=== PATIENT | female | born 1980 | race Caucasian/White ===

== ENCOUNTER 2016-07-02 11:01 | Inpatient (IN) | payer OTHER ==
[2016-07-02] MEDS ORDERED: SODIUM CHLORIDE 0.9% 1,000 ML IV STA (11:36)
[2016-07-02] MEDS ORDERED: IV VANCOMYCIN PER PHARMACY 1 EACH MISC MISCELLANE PRN (11:37)
[2016-07-02] MEDS ORDERED: VANCOMYCIN 1,500 MG in SODIUM CHLORIDE 0.9% 250 ML IVPB STA (11:37)
--- NOTE | 2016-07-02 11:40 | ED ---
General Adult HPI - General Chief complaint: Skin/Abscess/Foreign Body Stated complaint: poss cellulitis left arm Time Seen by Provider: 07/02/16 11:14 Source: patient, RN notes reviewed Mode of arrival: EMS Limitations: no limitations - History of Present Illness Initial comments: Patient 36-year-old female who resents from [facility] for IV drug use, with a chief complaint of abscess located to the left arm. Patient was seen at [facility] 2 days ago and had an abscess drained. States she was started on both Bactrim and Keflex. She states that the symptoms have increased and gotten worse. She states is more swelling and pain. Patient denies any other complaints or symptoms. Patient denies any recent fever, chills, shortness of breath, chest pain, back pain, abdominal pain , nausea or vomiting, numbness or tingling, dysuria or hematuria, constipation or diarrhea, headaches or visual changes, or any other complaints. - Related Data Allergies Allergy/AdvReac Type Severity Reaction Status Date / Time No Known Allergies Allergy Verified 07/02/16 11:22 Review of Systems ROS Statement: Those systems with pertinent positive or pertinent negative responses have been documented in the HPI. ROS Other: All systems not noted in ROS Statement are negative. Past Medical History Past Medical History: No Reported History History of Any Multi-Drug Resistant Organisms: None Reported Additional Past Surgical History / Comment(s): left knee, tubal ligation Past Psychological History: Anxiety Smoking Status: Current every day smoker Past Alcohol Use History: None Reported Past Drug Use History: None Reported General Exam - General Exam Comments Initial Comments: General: The patient is awake and alert, in no distress, and does not appear acutely ill. Eye: Pupils are equal, round and reactive to light, extra-ocular movements are intact. No nystagmus. There is normal conjunctiva bilaterally. No signs of icterus. Ears, nose, mouth and throat: There are moist mucous membranes and no oral lesions. Neck: The neck is supple, there is no tenderness or JVD. Cardiovascular: There is a regular rate and rhythm. No murmur, rub or gallop is appreciated. Respiratory: Lungs are clear to auscultation, respirations are non-labored, breath sounds are equal. No wheezes, stridor, rales, or rhonchi. Musculoskeletal: Normal ROM, no tenderness. Strength 5/5. Sensation intact. Pulses equal bilaterally 2+. Neurological: A&O x 3. CN II-XII intact, There are no obvious motor or sensory deficits. Coordination appears grossly intact. Speech is normal. Skin: Redness and swelling to the left AC joint with lymphangitic streaking half-way up left upper arm. Psychiatric: Cooperative, appropriate mood & affect, normal judgment. Limitations: no limitations Course Vital Signs 07/02/16 11:16 Temperature 98.9 F Pulse Rate 88 Respiratory 16 Rate Blood Pressure 104/56 O2 Sat by Pulse 97 Oximetry Medical Decision Making - Medical Decision Making Patient will be admitted to the hospital started on vancomycin for left arm abscess with cellulitis. Patient outpatient treatment failure of Bactrim and Keflex. Patient aware the plan states understanding and is in agreement. Discussed with attending physician Dr. Esparza who did discuss case with admitting physician Dr. Bay who recommends consult from [facility]. - Lab Data Result diagrams: 07/02/16 12:10 Lab Results 07/02/16 Range/Units 12:10 WBC 9.0 (3.8-10.6) k/uL RBC 4.27 (3.80-5.40) m/uL Hgb 13.5 (11.4-16.0) gm/dL Hct 41.6 (34.0-46.0) % MCV 97.3 (80.0-100.0) fL MCH 31.7 (25.0-35.0) pg MCHC 32.6 (31.0-37.0) g/dL RDW 15.8 H (11.5-15.5) % Plt Count 237 (150-450) k/uL Neutrophils % 75 % Lymphocytes % 13 % Monocytes % 6 % Eosinophils % 4 % Basophils % 0 % Neutrophils # 6.8 (1.3-7.7) k/uL Lymphocytes # 1.2 (1.0-4.8) k/uL Monocytes # 0.6 (0-1.0) k/uL Eosinophils # 0.3 (0-0.7) k/uL Basophils # 0.0 (0-0.2) k/uL Disposition Clinical Impression: Abscess of left arm, Cellulitis Disposition: ADMITTED IP TO THIS HOSP Condition: Good Time of Disposition: 12:31
[2016-07-02 12:20] LABS: Basophils % (A) 0 %; CH 31.6; CHCM 32.7; Eosinophils # (A) 0.3 k/uL (0-0.7); Eosinophils % (A) 4 %; HCT 41.6 % (34.0-46.0); HDW 2.11; HGB 13.5 gm/dL (11.4-16.0); Luc # (Auto) 0.18; Luc % (Auto) 2; Lymphocytes # (A) 1.2 k/uL (1.0-4.8); Lymphocytes % (A) 13 %; MCH 31.7 pg (25.0-35.0); MCHC 32.6 g/dL (31.0-37.0); MCV 97.3 fL (80.0-100.0); Mean Platelet Volume 8.1; Monocytes # (A) 0.6 k/uL (0-1.0); Monocytes % (A) 6 %; Neutrophils # (A) 6.8 k/uL (1.3-7.7); Neutrophils % (A) 75 %; RBC 4.27 m/uL (3.80-5.40); RDW 15.8 % (11.5-15.5); WBC (Perox) 9.11
[2016-07-02] MEDS ORDERED: NALOXONE 0.4 MG/ML 1 ML VIAL IV PRN (12:32)
[2016-07-02] MEDS ORDERED: SODIUM CHLORIDE 0.9% 1,000 ML IV ONE (12:32)
[2016-07-02] MEDS ORDERED: ACETAMINOPHEN TAB 325 MG TAB PO PRN (12:32)
[2016-07-02 12:35] LABS: ALT 41 U/L (9-52); AST 33 U/L (14-36); Alkaline Phosphatase 91 U/L (38-126); Anion Gap 11 mmol/L; Blood Urea Nitrogen 13 mg/dL (7-17); Calcium 9.5 mg/dL (8.4-10.2); Carbon Dioxide 21 mmol/L (22-30); Chloride 107 mmol/L (98-107); Glucose 73 mg/dL (74-99); Non-African American GFR(MDRD) 56 (>60 ml/min/1.73 sqM); Potassium 5.3 mmol/L (3.5-5.1); Sodium 139 mmol/L (137-145); Total Bilirubin 1.1 mg/dL (0.2-1.3); Total Protein 6.7 g/dL (6.3-8.2)
[2016-07-02] MEDS: HYDROcodone/APAP 5-325MG 1 EACH TAB PO PRN ×2 (13:59→19:42)
[2016-07-02] MEDS: NICOTINE 14MG/24HR PATCH TRANSDERM SCH (14:59)
--- NOTE | 2016-07-02 15:09 | P.GSCN ---
History of Present Illness Consult date: 07/02/16 Reason for Consult: Surgical eval abscess left antecubital History of present illness: 36-year-old female who presented on the day of admission to the emergency room to be evaluated for a chief complaint of increased redness increased pain increased swelling involving the left upper arm extending into left antecubital area patient states that she has been in [place] for IV drug use heroin for the last 10 days. While at [place] developed pain in the left antecubital area with an abscess presented to [facility] on Tuesday to be evaluated Patient states that she was seen at [facility] on Tuesday this week for the above-mentioned symptoms. She stated at that time they did drain an abscess from the left antecubital area. Patient stated that she use that area to inject IV heroin. Approximately 14 days ago Patient stated that she was started on antibiotic Bactrim and Keflex. Patient stated that she return back to [place] the symptoms became more symptomatic the redness extended around the arm and down to the antecubital space with more tenderness and increased pain. Patient stated there been no fever chills no shortness of breath no other symptoms. The left upper arm significant redness with tenderness noted the left antecubital space small area firm patient states that if the abscess area that they drained on Tuesday Review of Systems Essentially unremarkable except as mentioned in the present illness Past Medical History Past Medical History: No Reported History Additional Past Medical History / Comment(s): Abscess L arm History of Any Multi-Drug Resistant Organisms: None Reported Additional Past Surgical History / Comment(s): left knee reconstruction, tubal ligation Past Anesthesia/Blood Transfusion Reactions: No Reported Reaction Past Psychological History: Anxiety Additional Psychological History / Comment(s): Pt currently at [place] for IVDA rehab. Pt normally lives with her parents. She is independent. She last used heroin 10 days ago. Smoking Status: Current every day smoker Past Alcohol Use History: None Reported Past Drug Use History: Heroin Additional Drug Use History / Comment(s): Pt abused IV heroin. Last used 10 days ago. - Past Family History Father Family Medical History: No Reported History Additional Family Medical History / Comment(s): Father never goes to the doctor. Mother Family Medical History: No Reported History Additional Family Medical History / Comment(s): Mother is healthy. Medications and Allergies Home Medications Medication Instructions Recorded Confirmed Type Acetaminophen [Tylenol Arthritis] 650 mg PO Q4H PRN 07/02/16 07/02/16 History Calcium/Magnesium 100mg/500mg 1 tab PO TID PRN 07/02/16 07/02/16 History Cephalexin [Keflex] 500 mg PO QID 07/02/16 07/02/16 History Chlorpheniramine Maleate 4 mg PO Q4H PRN 07/02/16 07/02/16 History [Chlor-Trimeton] Ibuprofen [Motrin] 600 mg PO QID PRN 07/02/16 07/02/16 History Mirtazapine [Remeron] 15 mg PO HS 07/02/16 07/02/16 History Multivitamins, Thera [Multivitamin] 1 tab PO DAILY 07/02/16 07/02/16 History Ondansetron HCl [Zofran] 8 mg PO Q6H PRN 07/02/16 07/02/16 History Ondansetron [Zofran] 4 mg IM Q6H PRN 07/02/16 07/02/16 History Sulfamethox-Tmp 800-160Mg [Bactrim 1 tab PO BID@0600,1800 07/02/16 07/02/16 History DS 800-160 mg] busPIRone HCl [Buspar] 10 mg PO TID PRN 07/02/16 07/02/16 History cloNIDine HCL [Catapres] 0.1 mg PO Q4H PRN 07/02/16 07/02/16 History Allergies Allergy/AdvReac Type Severity Reaction Status Date / Time No Known Allergies Allergy Verified 07/02/16 12:31 Surgical - Exam Vital Signs Temp Pulse Resp BP Pulse Ox 98.9 F 88 16 104/56 97 07/02/16 11:16 07/02/16 11:16 07/02/16 11:16 07/02/16 11:16 07/02/16 11:16 GENERAL APPEARANCE: 36-year-old female patient is alert, oriented, 3 in no acute distress. VITAL SIGNS: Afebrile reviewed HEENT: Head is normocephalic and atraumatic. Pupils are equal and reactive. The nares are patent. Oropharynx is clear without lesions. NECK: Supple without lymphadenopathy. Traches midline. HEART: S1, S2. Regular rate and rhythm. No murmur noted denying heart palpitation denying chest pain LUNGS: No crackles or wheezes are heard. Adequate air movement on room air ABDOMEN: Soft, nontender, nondistended with good bowel sounds. No peritoneal signs. No palpable organomegaly or masses. Denies any nausea vomiting denies any frequent stooling EXTREMITIES: Bilateral lower extremities no evidence of edema. Radial pedal pulses are 2/4 bilaterally. The left upper arm extending into the before meals joint significant redness significant tenderness with swelling noted with lymphangitic streaking usp up the left arm. Palpable firm area where the abscess was drained noted patient states it has decreased in size. Patient continues to report having pain in the left upper arm with tenderness the left arm elevated on 2 pillows. Bilateral extremities warm to touch. NEUROLOGICAL: No focal deficits. Strength and sensation are grossly intact. Results - Labs 07/02/16 12:10 07/02/16 12:10 Assessment and Plan Plan: Impression Present on admission left arm abscess with cellulitis Status post incision and drainage of the left arm abscess done on Tuesday this week History of IV drug use heroin use last 14 days ago Failed outpatient treatment on Bactrim and Keflex for cellulitis left arm abscess Chronic nicotine dependency 1 pack a day Prior history of opiate prescription drug abuse Plan Dr. Lombardi will evaluate the left arm and further recommendations pending Keep left arm elevated Continue IV vancomycin as ordered Nicotine patch as ordered patient's been advised to stop smoking cigarettes Further surgical recommendations pending Continue IV fluid at 100 and hour Pain control Thank you for allowing us to participate in the surgical management of your patient further surgical recommendations pending The above dictated assessment and findings were discussed with dr lombardi Impression and the plan of care have been dictated as directed. Audra Maravilla nurse practitioner acting as a scribe for dr lombardi
[2016-07-02] MEDS: HYDROmorphone 1 MG/ML 1 ML SYRINGE IV PRN ×2 (16:21→21:49)
[2016-07-03] MEDS: HYDROcodone/APAP 5-325MG 1 EACH TAB PO PRN ×3 (01:03→18:15)
[2016-07-03] MEDS: HYDROmorphone 1 MG/ML 1 ML SYRINGE IV PRN ×5 (07:50→20:32)
--- NOTE | 2016-07-03 07:52 | US ---
EXAMINATION TYPE: US extremity nonvasc mass LT DATE OF EXAM: 07/02/2016 9:46 PM COMPARISON: No previous CLINICAL HISTORY: rule out abscess near AC fossa and upper arm . Left arm cellulitis, left arm absces s drained 2 days ago Findings: Scanned left arm AC fossa previous drainage site: 3.5 x 1.6 x 3.1cm and 1.9 x 1.0 x 2.2cm i rregular complex areas with some vascularity, both areas together span 5.5cm at previous drainage sit e IMPRESSION: Small residual abscess measuring 1.9 x 1.0 x 2.2 cm with surrounding areas of inflammato ry change and phlegmon.
[2016-07-03] MEDS: ONDANSETRON 4 MG/2 ML VIAL IVP PRN (07:58)
[2016-07-03] MEDS: NICOTINE 14MG/24HR PATCH TRANSDERM SCH (07:58)
[2016-07-03 08:14] LABS: ALT 34 U/L (9-52); AST 22 U/L (14-36); Alkaline Phosphatase 81 U/L (38-126); Anion Gap 8 mmol/L; Blood Urea Nitrogen 12 mg/dL (7-17); Calcium 8.5 mg/dL (8.4-10.2); Carbon Dioxide 25 mmol/L (22-30); Chloride 107 mmol/L (98-107); Glucose 81 mg/dL (74-99); Non-African American GFR(MDRD) 59 (>60 ml/min/1.73 sqM); Potassium 4.5 mmol/L (3.5-5.1); Sodium 140 mmol/L (137-145); Total Bilirubin 0.8 mg/dL (0.2-1.3); Total Protein 5.7 g/dL (6.3-8.2)
[2016-07-03 08:16] LABS: Basophils % (A) 1 %; CH 31.5; Eosinophils # (A) 0.2 k/uL (0-0.7); Eosinophils % (A) 4 %; HCT 37.7 % (34.0-46.0); HDW 2.06; HGB 11.8 gm/dL (11.4-16.0); Luc # (Auto) 0.15; Luc % (Auto) 3; Lymphocytes # (A) 0.7 k/uL (1.0-4.8); Lymphocytes % (A) 16 %; MCH 31.1 pg (25.0-35.0); MCHC 31.4 g/dL (31.0-37.0); MCV 98.9 fL (80.0-100.0); Macrocytosis Slight; Mean Platelet Volume 7.2; Monocytes # (A) 0.3 k/uL (0-1.0); Monocytes % (A) 8 %; Neutrophils % (A) 69 %; RBC 3.81 m/uL (3.80-5.40); RDW 15.9 % (11.5-15.5); WBC 4.4 k/uL (3.8-10.6); WBC (Perox) 4.35
[2016-07-03] MEDS ORDERED: VANCOMYCIN 1,500 MG in SODIUM CHLORIDE 0.9% 250 ML IVPB SCH (09:00)
[2016-07-03] MEDS: LORazepam 2 MG/ML SYRINGE IV PRN ×2 (09:46→20:36)
[2016-07-03] MEDS ORDERED: LIDOCAINE 2% INJ 20 MG/ML (20 ML MDV) SQ STA (12:25)
--- NOTE | 2016-07-03 13:59 | P.PCN ---
Date of Procedure: 07/03/16 Preoperative Diagnosis: abscess at injection site Postoperative Diagnosis: abscess and hematoma and previous injection site Procedure(s) Performed: Incision and drainage of abscess Anesthesia: local Surgeon: Jaya Hanks Pathology: other Indications for Procedure: Ultrasound proven residual abscess in the left antecubital fossa Operative Findings: Lysed hematoma with pus Description of Procedure: After obtaining informed consent the left antecubital, fossa was prepped and draped in usual sterile surgical fashion after which was infiltrated 1% lidocaine and incision was made at the site of the previous incision. Approximately 7-8 mL of pus and lysed hematoma was expressed. The cavity was then packed with a dressing. Patient ordered procedure well there were no complications.
--- NOTE | 2016-07-03 14:01 | P.PN ---
Progress Note - Text 36-year-old Nkechi presented with an injection site abscesses secondary to her drug use. It had previously been incised and drained. Ultrasound revealed that there was remanent fluid within the previous abscess cavity for which she underwent an incision and drainage at the bedside. Patient tolerated procedure well there were no complications. The effluent was sent for cultures. The surgical standpoint she could potentially be discharged tomorrow with daily dressing changes and packing of the wound. She may follow-up with me in clinic in a week time.
[2016-07-03] MEDS ORDERED: LIDOCAINE-PRILOCAINE 2.5-2.5% CREAM 5 GM TUBE TOPICAL STA (15:38)
[2016-07-03] MEDS ORDERED: busPIRone HCl 10 MG TAB PO PRN (16:57)
[2016-07-03] MEDS ORDERED: cloNIDine HCL 0.1 MG TAB PO PRN (16:57)
[2016-07-03] MEDS: MIRTAZAPINE 15 MG TAB PO SCH (20:31)
--- NOTE | 2016-07-03 20:49 | HP ---
CHIEF COMPLAINT: Left arm abscess. HISTORY OF PRESENT ILLNESS: Ms. Bazzi is a 36-year-old female who is currently sent from [facility] for the chief complaint of abscesses in her left forearm. The patient has history of IV drug abuse. She has been using IV heroin and later on went to [facility] facility. The patient was seen at [facility] 2 days back and had an abscess drained and was started on Bactrim and Keflex and sent home, but patient's swelling and pain had worsened and so she came in for further evaluation. Patient denies having any fevers, chills or rigors. No complaints of difficulty in breathing. No abdominal pain, nausea, vomiting or diarrhea. The patient denies having any dysuria or hematuria. At the time of admission, the patient was found to have abscess and had incision and drainage of the abscess of the cubital fossa by Dr. Hanks and she has been started on vancomycin. The patient is sitting up in the bed, appears to be no acute distress. She does not have any complaints. REVIEW OF SYSTEMS: All 13 review of systems are done and negative except for the ones mentioned in the HPI. Past medical history is significant for intravenous drug abuse. ALLERGIES: No known drug allergies. Patient's home medications: 1. Remeron 50 mg p.o. q.h.s. 2. Chlorpheniramine 4 mg q.4 hours p.r.n. for itching. 3. Tylenol 650 mg p.o. q.4. hours for pain. 4. Motrin 600 mg p.o. 4 times a day p.r.n. for pain. 5. Zofran 4 mg p.o. p.r.n. for nausea and vomiting. 6. BuSpar 10 mg p.o. 3 times a day. 7. Clonidine 0.1 mg p.o. q.4 hours for anxiety. 8. Bactrim and 9. Keflex and 10. Multivitamins. PAST SURGICAL HISTORY: Left knee reconstruction, tubal ligation. PAST PSYCHIATRIC HISTORY: Positive for anxiety. SOCIAL HISTORY: The patient is a current every day smoker and has history of intravenous drug abuse and did IV heroin 10 days back. FAMILY HISTORY: Negative for hypertension or diabetes. On examination, patient's vital signs: Temperature 97.9, heart rate 89, respiratory rate 16, blood pressure 88/47. GENERAL: Appears to be no acute distress. HEAD: Atraumatic, normocephalic. EYES: Pupils round and reactive to light. NECK: No thyromegaly. No JVD. CVS: S1, S2 heard. RESPIRATORY: Bilateral breath sounds are positive. No wheeze or crackles. ABDOMEN: Soft, nontender. No organomegaly. Bowel sounds are positive. EXTREMITIES: No cyanosis. There is no clubbing. HEALTH SAFETY MANAGER: Alert, awake, oriented x3. LEFT ARM: It is covered with a glaser bandage and I did not take it out and the patient states she just had the dressing changed. PATIENT'S LABS: White count of 4.4, hemoglobin is 11.8, platelets of 228. Sodium 140, potassium 4.5, chloride 107, bicarb 25, BUN 12, creatinine 1.05. ASSESSMENT AND PLAN: 1. Left arm abscess with surrounding cellulitis. 2. History of intravenous drug abuse. 3. History of nicotine dependence. 4. Anxiety/depression unspecified. PLAN: The plan is to continue the patient on vancomycin for now, as she failed outpatient treatments with Bactrim and Keflex and the patient's wound cultures are currently pending. Will continue the rest of her medication regimen and further recommendations depending on the progress of the patient.
[2016-07-04] MEDS: VANCOMYCIN 1,500 MG in SODIUM CHLORIDE 0.9% 250 ML IVPB SCH ×2 (00:17→15:31)
[2016-07-04] MEDS: HYDROcodone/APAP 5-325MG 1 EACH TAB PO PRN ×4 (00:17→20:54)
[2016-07-04 07:33] LABS: Basophils % (A) 1 %; CH 31.7; CHCM 31.8; Eosinophils # (A) 0.2 k/uL (0-0.7); Eosinophils % (A) 6 %; HCT 38.1 % (34.0-46.0); HDW 2.18; HGB 11.7 gm/dL (11.4-16.0); Luc % (Auto) 3; Lymphocytes # (A) 0.9 k/uL (1.0-4.8); Lymphocytes % (A) 27 %; MCH 30.8 pg (25.0-35.0); MCHC 30.7 g/dL (31.0-37.0); MCV 100.5 fL (80.0-100.0); Macrocytosis Slight; Mean Platelet Volume 8.2; Monocytes # (A) 0.3 k/uL (0-1.0); Monocytes % (A) 10 %; Neutrophils # (A) 1.8 k/uL (1.3-7.7); Neutrophils % (A) 54 %; RBC 3.79 m/uL (3.80-5.40); RDW 15.9 % (11.5-15.5); WBC 3.3 k/uL (3.8-10.6); WBC (Perox) 3.42
[2016-07-04] MEDS: NICOTINE 14MG/24HR PATCH TRANSDERM SCH (10:25)
[2016-07-04] MEDS: LORazepam 2 MG/ML SYRINGE IV PRN ×3 (10:46→23:42)
--- NOTE | 2016-07-04 11:23 | P.PN ---
Subjective Principal diagnosis: Left arm cellulitis with abscess Overall the patient is doing well. Pain has improved and the redness has decreased Objective - Vital Signs Vital signs: Vital Signs Temp 98.1 F 07/04/16 07:00 Pulse 86 07/04/16 07:00 Resp 16 07/04/16 08:00 BP 95/68 07/04/16 07:00 Pulse Ox 97 07/04/16 07:00 Intake & Output 07/03/16 07/04/16 07/04/16 18:59 06:59 18:59 Intake Total 800 Balance 800 Intake: IV 800 Sodium Chloride 0.9% 1, 800 000 ml @ 100 mls/hr IV . Q10H ONE Rx#:[id number] Other: Voiding Method Toilet Toilet Toilet # Voids 2 1 - Exam Left arm was exaimned. There is definitely decreased amount of cellulitis. The incision was packed with a small amount of dressing. There is no fluctuation or redness or drainage at this time. Pain is improved. Overall the arm still remains swollen but the numbness and tingling has resolved. - Labs CBC & Chem 7: 07/04/16 06:56 07/03/16 07:10 Labs: Abnormal Lab Results - Last 24 Hours (Table) 07/04/16 Range/Units 06:56 WBC 3.3 L (3.8-10.6) k/uL RBC 3.79 L (3.80-5.40) m/uL MCV 100.5 H (80.0-100.0) fL MCHC 30.7 L (31.0-37.0) g/dL RDW 15.9 H (11.5-15.5) % Lymphocytes # 0.9 L (1.0-4.8) k/uL Microbiology - Last 24 Hours (Table) 07/03/16 13:40 Gram Stain - Preliminary Elbow - Left Wound Culture - Preliminary 07/03/16 13:40 Anaerobic Culture - Preliminary Elbow - Left Assessment and Plan (1) Abscess of left arm Status: Acute (2) Cellulitis Status: Acute Plan: Improving cellulitis and no residual abscess. Continue local wound care as recommended. Okay to discharge from surgical standpoint.
[2016-07-04] MEDS: HYDROmorphone 1 MG/ML 1 ML SYRINGE IV PRN ×3 (12:23→21:50)
[2016-07-04] MEDS: ONDANSETRON 4 MG/2 ML VIAL IVP PRN (12:33)
[2016-07-04] MEDS ORDERED: cloNIDine HCL 0.1 MG TAB PO PRN (14:44)
[2016-07-04] MEDS: MIRTAZAPINE 15 MG TAB PO SCH (21:36)
[2016-07-05] MEDS: HYDROmorphone 1 MG/ML 1 ML SYRINGE IV PRN ×6 (01:47→22:11)
[2016-07-05] MEDS ORDERED: VANCOMYCIN TROUGH DUE 1 EACH MISC MISCELLANE ONE (07:00)
[2016-07-05] MEDS: VANCOMYCIN 1,500 MG in SODIUM CHLORIDE 0.9% 250 ML IVPB SCH (07:57)
[2016-07-05] MEDS: LORazepam 2 MG/ML SYRINGE IV PRN ×3 (07:57→19:28)
[2016-07-05] MEDS: NICOTINE 14MG/24HR PATCH TRANSDERM SCH (08:00)
[2016-07-05] MEDS: HYDROcodone/APAP 5-325MG 1 EACH TAB PO PRN ×3 (13:46→21:46)
--- NOTE | 2016-07-05 14:16 | PN ---
INTERVAL HISTORY: Ms. Bazzi is a 36-year-old female with past medical history of intravenous drug abuse, admitted to the hospital for left antecubital fossa abscess. She had I&D of the abscess and currently on antibiotics. Her cultures are pending. Today the patient is sitting up in her bed to be in no acute distress. REVIEW OF SYSTEMS: CONSTITUTIONAL: Denies having any fevers, chills or rigors. RESPIRATORY: No cough. ( ). CARDIAC: No chest pain or palpitations. GI: No abdominal pain, nausea, vomiting, or diarrhea. Patient's medications have been reviewed. On examination, patient's vital signs temperature 98.2, heart rate 84, respiratory rate 16, blood pressure 106/52, saturating at 98% on room air. HEAD: Atraumatic, nontraumatic. EYES: Pupils, round, and reactive to light. NECK: No JVD. No thyromegaly. CARDIOVASCULAR: S1, S2 heard. LUNGS: Bilateral breath sounds are positive. No wheeze or crackles. ABDOMEN: Soft, nontender. Bowel sounds are positive. EXTREMITIES: No edema. No cyanosis, no clubbing. Peripheral pulses are felt. Examination of the left antecubital fossa it is covered in crepe bandage, and examination of the bandage did not show any signs of active bleeding. Patient's labs: White count of 3.3, hemoglobin is 11.7, platelets of 259. Patient's cultures, wound cultures are currently pending. ASSESSMENT AND PLAN: 1. Left antecubital fossa abscess, status incision and drainage. 2. History of intravenous drug abuse. 3. History of nicotine dependence. 4. Anxiety/depression unspecified. PLAN: The plan is to continue the patient on vancomycin until we have the wound cultures and continue with the rest of her medication regimen. Further recommendations to follow depending on the progress of the patient.
[2016-07-05] MEDS: MIRTAZAPINE 15 MG TAB PO SCH (21:48)
[2016-07-06] MEDS: VANCOMYCIN 1,500 MG in SODIUM CHLORIDE 0.9% 250 ML IVPB SCH ×2 (00:42→15:45)
[2016-07-06] MEDS: HYDROmorphone 1 MG/ML 1 ML SYRINGE IV PRN ×2 (00:55→05:51)
[2016-07-06] MEDS: HYDROcodone/APAP 5-325MG 1 EACH TAB PO PRN ×5 (01:47→20:10)
[2016-07-06] MEDS: NICOTINE 14MG/24HR PATCH TRANSDERM SCH ×2 (07:17→23:33)
[2016-07-06] MEDS: LORazepam 2 MG/ML SYRINGE IV PRN ×3 (07:45→20:11)
--- NOTE | 2016-07-06 09:05 | PN ---
DATE OF SERVICE: 07/05/2016 Mrs. Bazzi is a 36-year-old female with a past medical history of IV drug abuse admitted to the hospital for a left antecubital fossa abscess. She is status post I&D and currently on antibiotics. Cultures are still pending. Today, the patient is sitting up in the bed, appears to be in no acute distress. She does not have any active complaints. REVIEW OF SYSTEMS: CONSTITUTIONAL: Denies having any fevers, chills or rigors. RESPIRATORY: No cough. No difficulty in breathing. CARDIAC: No chest pain, no palpitations. GI: No abdominal pain, nausea, vomiting, or diarrhea. The patient's medications have been reviewed. On examination, patient's vital signs temperature 97.5, heart rate 95, respiratory rate 16, blood pressure 98/54, saturating at 96% on room air. GENERAL EXAMINATION: Patient appears to be in no acute distress. HEAD: Atraumatic, normocephalic. EYES: Pupils round and reactive to light. NECK: No JVD. No thyromegaly. CARDIOVASCULAR: S1, S2 heard. LUNGS: Bilateral breath sounds are positive. No wheeze or crackles. ABDOMEN: Soft, nontender. Bowel sounds positive. EXTREMITIES: No edema. No cyanosis. Peripheral pulses are felt. Left antecubital fossa covered in ( ) bandage. No signs of active oozing. Patient's labs: White count of 3.3, hemoglobin is 11.7, platelets of 259. ASSESSMENT AND PLAN: 1. Left antecubital fossa abscess, status post incision and drainage. 2. History of IV drug abuse. 3. History of nicotine dependence. 4. Anxiety/depression, unspecified. PLAN: Plan is to continue the patient on vancomycin. Currently the wound cultures are pending. Will continue with the rest of her medication regimen and further recommendations to follow depending on the progress of the patient.
[2016-07-06 09:50] LABS: Anion Gap 9 mmol/L; Blood Urea Nitrogen 10 mg/dL (7-17); Calcium 8.6 mg/dL (8.4-10.2); Carbon Dioxide 25 mmol/L (22-30); Chloride 107 mmol/L (98-107); Glucose 73 mg/dL (74-99); Non-African American GFR(MDRD) >60 (>60 ml/min/1.73 sqM); Potassium 4.2 mmol/L (3.5-5.1); Sodium 141 mmol/L (137-145)
[2016-07-06] MEDS: KETOROLAC 30 MG/ML 1 ML VIAL IVP PRN ×2 (10:50→18:52)
[2016-07-06 13:13] LABS: Hepatitis B Surface Ag Index 0.07
[2016-07-06 13:19] LABS: Hepatitis B Core IgM Index 0.07
[2016-07-06 13:36] LABS: Hepatitis C Virus IgG Ab Reactive (Negative)
--- NOTE | 2016-07-06 17:31 | PN ---
This dictation is both progress note and discharge summary. A 36-year-old with history of IV drug use and abscess in the antecubital fossa, underwent incision and drainage. Awaiting culture and sensitivities. Patient is clinically doing well at this point of time, afebrile. Considering her IV drug use history, I am also obtaining hepatitis panel at this point of time. REVIEW OF SYSTEMS: CARDIOVASCULAR: No chest pain, no orthopnea, no PND, no palpitations. PULMONARY: Denied any shortness of breath. No cough or hemoptysis. GASTROINTESTINAL: No diarrhea, nausea or vomiting. No abdominal pain. Normoactive bowel sounds. NEUROLOGIC: No headaches, no weakness, no numbness. Medications were reviewed. PHYSICAL EXAMINATION: Temperature 97.9, pulse of 82, respiratory rate of 18, blood pressure 90/49, saturating at 97% on room air. GENERAL: The patient is alert and oriented x3, not in any acute distress. Well developed, well nourished. HEENT: Pupils are round and equally reacting to light. EOMI. No scleral icterus. No conjunctival pallor. Normocephalic, atraumatic. No pharyngeal erythema. No thyromegaly. CARDIOVASCULAR: S1 and S2 present. No murmurs, rubs, or gallops. PULMONARY: Chest is clear to auscultation, no wheezing or crackles. ABDOMEN: Soft, nontender, nondistended, normoactive bowel sounds. No palpable organomegaly. MUSCULOSKELETAL: Left antecubital fossa is postsurgically drained and has a dressing over it. EXTREMITIES: No cyanosis, clubbing, or pedal edema. NEUROLOGICAL: Gross neurological examination did not reveal any focal deficits. SKIN: No rashes. Medication changes include the following: Her clonidine was discontinued. I do not see a reason for that. Her blood pressure is already low. I started her on anti-inflammatory medications to avoid opiates as much as possible. LABORATORY DATA: Basic metabolic profile is essentially within normal limits. ASSESSMENT AND PLAN: 1. Abscess in antecubital fossa probably due to IV drug use and hepatitis panel was ordered, awaiting cultures. If we are able to get cultures today and I will be able to decide on antibiotics and discharge her today. Otherwise, the patient is going to stay here. 2. Rule out hepatitis. 3. Nicotine dependence. 4. Anxiety, depression. PLAN: As mentioned above.
[2016-07-06] MEDS: MIRTAZAPINE 15 MG TAB PO SCH (20:17)
[2016-07-07] MEDS: HYDROcodone/APAP 5-325MG 1 EACH TAB PO PRN ×3 (03:41→12:28)
[2016-07-07] MEDS: LORazepam 2 MG/ML SYRINGE IV PRN ×2 (03:41→08:53)
[2016-07-07] MEDS: KETOROLAC 30 MG/ML 1 ML VIAL IVP PRN (04:18)
[2016-07-07] MEDS: HYDROmorphone 1 MG/ML 1 ML SYRINGE IV PRN ×3 (05:24→12:05)
[2016-07-07] MEDS: NICOTINE 14MG/24HR PATCH TRANSDERM SCH (07:57)
[2016-07-07] MEDS: VANCOMYCIN 1,500 MG in SODIUM CHLORIDE 0.9% 250 ML IVPB SCH (07:58)
[2016-07-07 08:20] VITALS: BP 82/41; PULSE 70; RESP 18; TEMP 96.8
[2016-07-07 09:47] LABS: CH 31.3; CHCM 31.6; HDW 2.16; HGB 12.1 gm/dL (11.4-16.0); MCH 31.7 pg (25.0-35.0); MCHC 31.8 g/dL (31.0-37.0); MCV 99.6 fL (80.0-100.0); Macrocytosis Slight; RBC 3.82 m/uL (3.80-5.40); RDW 15.5 % (11.5-15.5)
[2016-07-07] MEDS ORDERED: FLUCONAZOLE 100 MG TAB PO ONE (10:00)
[2016-07-07 10:12] LABS: Anion Gap 10 mmol/L; Blood Urea Nitrogen 19 mg/dL (7-17); Calcium 8.7 mg/dL (8.4-10.2); Carbon Dioxide 23 mmol/L (22-30); Chloride 106 mmol/L (98-107); Glucose 95 mg/dL (74-99); Non-African American GFR(MDRD) >60 (>60 ml/min/1.73 sqM); Potassium 4.4 mmol/L (3.5-5.1); Sodium 139 mmol/L (137-145)
[2016-07-07] MEDS: ONDANSETRON 4 MG/2 ML VIAL IVP PRN (12:12)
--- NOTE | 2016-07-08 07:35 | DS ---
DATE OF ADMISSION: 07/02/2016 DATE OF DISCHARGE: 07/07/2016 The patient is a 36-year-old IV drug user came in with abscess in the antecubital fossa. ( ) and the patient is found to have hepatitis C and patient will need to follow with Gastroenterology as an outpatient. Same thing will be conveyed to the patient. Patient already got prescriptions for Keflex and Bactrim. She needs to use those medications for 10 days and patient will be discharged. The patient was seen and examined on the day of discharge. Vitals are stable. PHYSICAL EXAMINATION: GENERAL: The patient is alert and oriented x3, not in any acute distress. Well developed, well nourished. HEENT: Pupils are round and equally reacting to light. EOMI. No scleral icterus. No conjunctival pallor. Normocephalic, atraumatic. No pharyngeal erythema. No thyromegaly. CARDIOVASCULAR: S1 and S2 present. No murmurs, rubs, or gallops. PULMONARY: Chest is clear to auscultation, no wheezing or crackles. ABDOMEN: Soft, nontender, nondistended, normoactive bowel sounds. No palpable organomegaly. MUSCULOSKELETAL: No joint swelling or deformity. EXTREMITIES: No cyanosis, clubbing, or pedal edema. NEUROLOGICAL: Gross neurological examination did not reveal any focal deficits. SKIN: No rashes. Left antecubital fossa post surgically packed and appears to be clean. FINAL DIAGNOSES: 1. Abscess in the antecubital fossa. 2. Hepatitis C secondary to IV drug use. 3. Nicotine dependence. 4. Anxiety disorder. Please refer to my depart summary for further details of discharge medications. Activity as tolerated. Regular diet. Follow up with Dr. Hanks in one week. Follow up with her physician in [place]. Follow up with a field assembly supervisor in [place]. Spen greater than 35 minutes in total discharge process.
== END 2016-07-07 13:40 | disposition home or self-care (01) | DRG 603 ==
LOC: EC 11:01 → 5MS5E 12:34
PROVIDERS: ADMIT Internal Medicine; ATTEND Internal Medicine
PROC: 0H9EXZZ Drainage of Left Lower Arm Skin, External Approach (ICD-10-PCS; principal; 2016-07-03)
DX: L02.414 Cutaneous abscess of left upper limb (principal); F32.9 Major depressive disorder, single episode, unspecified; F11.10 Opioid abuse, uncomplicated; B19.20 Unspecified viral hepatitis C without hepatic coma; L03.114 Cellulitis of left upper limb; F17.200 Nicotine dependence, unspecified, uncomplicated; F41.9 Anxiety disorder, unspecified; Z79.1 Long term (current) use of non-steroidal anti-inflammatories (NSAID); Z79.899 Other long term (current) drug therapy
CPT/HCPCS: 36415; 80048; 80053; 80074; 80202; 85025; 85027; 87040; 87070; 87075; 87205; 99285